=== PATIENT | female | born 1930 | race Caucasian/White ===

== ENCOUNTER → 2016-09-24 | Outpatient (REF) | payer MEDICARE, OTHER ==
[2016-09-24 12:20] LABS: ALBUMIN/GLOBULIN RATIO 1.25 (1.00-1.93); ALKALINE PHOSPHATASE 65 U/L (45-117); ALT/SGPT 21 U/L (12-78); ANION GAP 7 MEQ/L (8-16); AST/SGOT 19 U/L (15-37); BILIRUBIN,TOTAL 0.3 MG/DL (0.2-1.0); BLOOD UREA NITROGEN 20 MG/DL (7-18); CALCIUM LEVEL 9.1 MG/DL (8.8-10.2); CARBON DIOXIDE LEVEL 30 MEQ/L (21-32); CHLORIDE LEVEL 101 MEQ/L (98-107); CHOLESTEROL LEVEL 160 MG/DL (<200); CREATININE FOR GFR 0.97 MG/DL (0.55-1.02); FREE T4 1.09 NG/DL (0.76-1.46); GLOMERULAR FILTRATION RATE 58.1 (>32); GLUCOSE, FASTING 130 MG/DL (83-110); PERCENT SATURATION 23.4 % (13.2-37.4); POTASSIUM SERUM 4.3 MEQ/L (3.5-5.1); SODIUM LEVEL 138 MEQ/L (136-145); TOTAL IRON BINDING CAPACITY 333 UG/DL (250-450); TOTAL PROTEIN 7.2 GM/DL (6.4-8.2); TRIGLYCERIDES LEVEL 99 MG/DL (<150)
[2016-09-24 12:36] LABS: BASO % 0.7 % (0.0-1.0); EOS # 0.2 K/mm3 (0.0-0.50); EOS % 4.6 % (0.0-3.0); LARGE UNSTAINED CELL # 0.2 K/mm3 (0.0-0.4); LARGE UNSTAINED CELL % 3.1 % (0.0-4.0); LYMPH # 1.2 K/mm3 (1.5-4.5); LYMPH % 20.6 % (24.0-44.0); MEAN CORPUSCULAR HEMOGLOBIN 31.1 pg (27.0-33.0); MEAN CORPUSCULAR HGB CONC 32.7 g/dl (32.0-36.5); MEAN CORPUSCULAR VOLUME 95.1 fl (80.0-96.0); MONO # 0.3 K/mm3 (0.0-0.8); MONO % 5.8 % (0.0-5.0); NEUTROPHILS # 3.3 K/mm3 (1.8-7.7); NEUTROPHILS % 65.4 % (36.0-66.0); PLATELET COUNT, AUTOMATED 239 k/mm3 (150-450); RED CELL DISTRIBUTION WIDTH 13.2 % (11.5-14.5)
[2016-09-24 12:42] LABS: FOLATE > 24.0 NG/ML; VITAMIN B12 LEVEL 502 PG/ML
== END ==
LOC: M LABDRAW1 11:45
PROVIDERS: ATTEND Emergency Medicine
DX: I10 Essential (primary) hypertension (principal); E78.2 Mixed hyperlipidemia; E03.9 Hypothyroidism, unspecified; R73.01 Impaired fasting glucose; D51.9 Vitamin B12 deficiency anemia, unspecified; D50.9 Iron deficiency anemia, unspecified

== ENCOUNTER → 2016-12-02 | Outpatient (CLI) | payer MEDICARE, OTHER ==
[~2016-12-02] MED LIST: ADV250INH; AMLO5TAB2; CLOP75TA2; ELIQ2.5T; GABA-279; ISOS30TA4 PO; LEVO25TA5; OLME40TA; OMEP40CA2; SIMV40TA2
[2016-12-02 21:39] LABS: CALCIUM LEVEL 9.4 MG/DL (8.8-10.2); CREATININE FOR GFR 1.1 MG/DL (0.55-1.02); GLOMERULAR FILTRATION RATE 50.3 (>32); POTASSIUM SERUM 4.8 MEQ/L (3.5-5.1)
== END ==
LOC: M SMT 13:07
PROVIDERS: ATTEND Internal Medicine Cardiovascular Disease
DX: I10 Essential (primary) hypertension (principal); I25.10 Atherosclerotic heart disease of native coronary artery without angina pectoris

== ENCOUNTER → 2016-12-11 | Outpatient (REF) | payer MEDICARE, OTHER ==
[2016-12-11 15:53] LABS: BASO % 0.5 % (0.0-1.0); EOS # 0.4 K/mm3 (0.0-0.50); EOS % 6.4 % (0.0-3.0); LARGE UNSTAINED CELL # 0.2 K/mm3 (0.0-0.4); LYMPH # 1.3 K/mm3 (1.5-4.5); LYMPH % 18.4 % (24.0-44.0); MEAN CORPUSCULAR HEMOGLOBIN 31.5 pg (27.0-33.0); MEAN CORPUSCULAR HGB CONC 34.2 g/dl (32.0-36.5); MEAN CORPUSCULAR VOLUME 91.9 fl (80.0-96.0); MONO # 0.3 K/mm3 (0.0-0.8); MONO % 4.9 % (0.0-5.0); NEUTROPHILS # 3.8 K/mm3 (1.8-7.7); NEUTROPHILS % 65.7 % (36.0-66.0); PLATELET COUNT, AUTOMATED 211 k/mm3 (150-450); RED CELL DISTRIBUTION WIDTH 12.6 % (11.5-14.5); WHITE BLOOD COUNT 5.8 K/mm3 (4.0-10.0)
[2016-12-11 16:07] LABS: ALBUMIN 3.8 GM/DL (3.2-5.2); ALBUMIN/GLOBULIN RATIO 1.15 (1.00-1.93); BILIRUBIN,TOTAL 0.3 MG/DL (0.2-1.0); CREATININE FOR GFR 1.31 MG/DL (0.55-1.02); GLOMERULAR FILTRATION RATE 41.1 (>32); POTASSIUM SERUM 4.6 MEQ/L (3.5-5.1); TOTAL PROTEIN 7.1 GM/DL (6.4-8.2)
== END ==
LOC: M LABDRAW1 15:26
PROVIDERS: ATTEND Emergency Medicine
DX: I10 Essential (primary) hypertension (principal); D50.9 Iron deficiency anemia, unspecified

== ENCOUNTER 2017-01-11 17:02 | Emergency (ER) | payer MEDICARE, BC, OTHER ==
[~2017-01-11] VITALS: Ht 165.1 cm; Wt 54.5 kg
[2017-01-11] MEDS ORDERED: ELIQ2.5T (17:14)
[2017-01-11] MEDS ORDERED: OLME40TA (17:14)
[2017-01-11] MEDS ORDERED: OMEP40CA2 (17:14)
[2017-01-11] MEDS ORDERED: CLOP75TA2 (17:14)
[2017-01-11] MEDS ORDERED: LEVO25TA5 (17:14)
[2017-01-11] MEDS ORDERED: GABA-279 (17:14)
[2017-01-11] MEDS ORDERED: AMLO5TAB2 (17:14)
[2017-01-11] MEDS ORDERED: ADV250INH (17:14)
[2017-01-11] MEDS ORDERED: SIMV40TA2 (17:14)
[2017-01-11 18:13] LABS: BASO # 0.1 K/mm3 (0.0-0.2); EOS # 0.3 K/mm3 (0.0-0.50); EOS % 4.7 % (0.0-3.0); LARGE UNSTAINED CELL # 0.3 K/mm3 (0.0-0.4); LARGE UNSTAINED CELL % 3.6 % (0.0-4.0); LYMPH # 1.5 K/mm3 (1.5-4.5); MEAN CORPUSCULAR HEMOGLOBIN 31.4 pg (27.0-33.0); MEAN CORPUSCULAR HGB CONC 34.6 g/dl (32.0-36.5); MONO # 0.3 K/mm3 (0.0-0.8); MONO % 4.1 % (0.0-5.0); NEUTROPHILS # 4.4 K/mm3 (1.8-7.7); NEUTROPHILS % 63.5 % (36.0-66.0); PLATELET COUNT, AUTOMATED 205 k/mm3 (150-450); RED CELL DISTRIBUTION WIDTH 12.9 % (11.5-14.5)
[2017-01-11 18:15] LABS: INR 1.08
[2017-01-11] MEDS ORDERED: ASPIRIN 81 MG CHEW TABLET PO ONE (18:15)
[2017-01-11 18:24] LABS: ALBUMIN 3.8 GM/DL (3.2-5.2); ALBUMIN/GLOBULIN RATIO 1.09 (1.00-1.93); ALKALINE PHOSPHATASE 70 U/L (45-117); ALT/SGPT 21 U/L (12-78); ANION GAP 7 MEQ/L (8-16); AST/SGOT 20 U/L (15-37); BILIRUBIN,DIRECT < 0.1 MG/DL (0.0-0.2); BILIRUBIN,TOTAL 0.3 MG/DL (0.2-1.0); BLOOD UREA NITROGEN 24 MG/DL (7-18); CALCIUM LEVEL 8.8 MG/DL (8.8-10.2); CARBON DIOXIDE LEVEL 26 MEQ/L (21-32); CHLORIDE LEVEL 103 MEQ/L (98-107); CREATININE FOR GFR 1.17 MG/DL (0.55-1.02); FREE T4 1.13 NG/DL (0.76-1.46); GLOMERULAR FILTRATION RATE 46.8 (>32); GLUCOSE, FASTING 145 MG/DL (83-110); POTASSIUM SERUM 4.3 MEQ/L (3.5-5.1); SODIUM LEVEL 136 MEQ/L (136-145); TOTAL PROTEIN 7.3 GM/DL (6.4-8.2)
--- NOTE | 2017-01-11 18:31 | ECGEPIP ---
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
[2017-01-11] MEDS ORDERED: ISOVUE-370 76% 100ML VIAL (Q9967) As Ordered ONE (18:47)
[2017-01-11] MEDS ORDERED: NITROGLYCERIN 0.4 MG SUBL TABLET SL STA (19:12)
[2017-01-11 19:25] VITALS: BP 156/74
[2017-01-11] MEDS ORDERED: ISOSORBIDE MON. (IMDUR) 30 MG XR TAB PO ONE (20:00)
--- NOTE | 2017-01-11 21:00 | REPUSA ---
CLINICAL HISTORY: exclude PE. TECHNIQUE: Multiple incremental axial, coronal and oblique images are obtained from the thoracic inle t to the upper abdomen. Intravenous contrast material was administered as per pulmonary embolism prot ocol. COMMENTS: There is excellent opacification of pulmonary arterial system without evidence for pulmonary embolism . Aorta is of normal caliber without evidence for dissection or aneurysm. Scarring is present in the right middle lobe. There is no evidence of pleural or parenchymal mass. There are no pleural effusions. There is no evid ence of hilar or mediastinal lymphadenopathy. The heart is enlarged. Status post median sternotomy a nd CABG. Images of the upper abdomen demonstrate no evidence of adrenal mass. Status post cholecystectomy. The bony structures are free of lytic or blastic lesions. Multilevel degenerative changes are seen in volving the visualized thoracolumbar spine. Scattered calcifications are seen involving the aorta and major branches compatible with atherosclero sis. IMPRESSION: No evidence for pulmonary embolism. Thank you for your kind referral of this patient.
[2017-01-11] MEDS ORDERED: ISOS30TA4 PO (22:53)
[2017-01-11 23:06] VITALS: BP 172/78
--- NOTE | 2017-01-12 07:29 | ECGEPIP ---
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
--- NOTE | 2017-01-12 07:54 | REP ---
PA and lateral chest: Comparison is 01/29/2016. The lung watson are clear. Cardiac size is upper normal. The myah, mediastinum, and bony thorax are unremarkable. Sternotomy wires and mediastinal surgical clips are again identified. There is a electronic device over the left chest wall anteriorly. Impression: No acute cardiopulmonary findings. No interval change except for the electronic device. Signed by Rhett Crawford MD 01/12/2017 07:45 A
--- NOTE | 2017-01-13 20:43 | ECGEPIP ---
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
== END 2017-01-11 23:21 | disposition home or self-care (01) ==
LOC: M ED 17:02
DX: I20.8 Other forms of angina pectoris (principal); M79.1 Myalgia; I48.91 Unspecified atrial fibrillation; I25.10 Atherosclerotic heart disease of native coronary artery without angina pectoris; Z95.5 Presence of coronary angioplasty implant and graft; Z95.1 Presence of aortocoronary bypass graft; R94.31 Abnormal electrocardiogram [ECG] [EKG]; Z79.899 Other long term (current) drug therapy; Z88.1 Allergy status to other antibiotic agents; Z91.010 Allergy to peanuts
CPT/HCPCS: 71020; 71275; 80048; 80076; 82550; 82553; 83880; 84439; 84443; 84484; 85025; 85379; 85610; 85730; 86140; 93005; 93041; 94760; 99285; Q9967

== ENCOUNTER → 2017-02-05 | Outpatient (REF) | payer MEDICARE, OTHER | LOC: M LABDRAW1 13:48 | PROVIDERS: ATTEND Emergency Medicine | DX: R30.0 Dysuria (principal) ==

== ENCOUNTER → 2017-03-07 | Outpatient (REF) | payer MEDICARE, OTHER ==
[2017-03-07 13:14] LABS: BASO % 0.5 % (0.0-1.0); EOS # 0.2 10^3/uL (0.0-0.50); EOS % 4.1 % (0.0-3.0); IMMATURE GRANULOCYTE % 0.4 % (0-0); LYMPH # 1.3 10^3/uL (1.5-4.5); LYMPH % 22.8 % (24.0-44.0); MEAN CORPUSCULAR HEMOGLOBIN 30.8 pg (27.0-33.0); MEAN CORPUSCULAR HGB CONC 33.2 g/dl (32.0-36.5); MEAN CORPUSCULAR VOLUME 92.6 fl (80.0-96.0); MONO # 0.5 10^3/uL (0.0-0.8); MONO % 8.6 % (0.0-5.0); NEUTROPHILS # 3.6 10^3/uL (1.8-7.7); NEUTROPHILS % 63.6 % (36.0-66.0); PLATELET COUNT, AUTOMATED 200 10^3/uL (150-450); RED CELL DISTRIBUTION WIDTH 13.4 % (11.5-14.5); WHITE BLOOD COUNT 5.6 10^3/uL (4.0-10.0)
[2017-03-07 13:37] LABS: ALBUMIN/GLOBULIN RATIO 1.14 (1.00-1.93); BILIRUBIN,TOTAL 0.4 MG/DL (0.2-1.0); CALCIUM LEVEL 8.8 MG/DL (8.8-10.2); CREATININE FOR GFR 1.08 MG/DL (0.55-1.02); GLOMERULAR FILTRATION RATE 51.3 (>32); PERCENT SATURATION 24.2 % (13.2-45.0); POTASSIUM SERUM 4.7 MEQ/L (3.5-5.1); TOTAL PROTEIN 7.5 GM/DL (6.4-8.2)
== END ==
LOC: M LABDRAW1 09:20
PROVIDERS: ATTEND Emergency Medicine
DX: I10 Essential (primary) hypertension (principal); D50.9 Iron deficiency anemia, unspecified; E78.2 Mixed hyperlipidemia; R73.01 Impaired fasting glucose; D51.9 Vitamin B12 deficiency anemia, unspecified